=== PATIENT | female | born 1940 | race African-American/Black ===

== ENCOUNTER 2017-07-26 11:38 | Inpatient (IN) | payer BC ==
[2017-07-26] MEDS: IV NORMAL SALINE 1000ML BAG 1,000 ML IV (11:59)
[2017-07-26 12:05] LABS: BASO % 1 % (0-3); EOS % 0 % (0-3); HEMATOCRIT 24.4 % (36.0-47.0); HEMOGLOBIN 8.6 g/dL (12.0-15.5); LYMPH # 1.2 x10^3/uL (1.0-4.8); LYMPH % 35 % (24-48); MEAN CORPUSCULAR HEMOGLOBIN 33 pg (25-35); MEAN CORPUSCULAR HGB CONC 35 g/dL (31-37); MEAN CORPUSCULAR VOLUME 94 fL (79-100); MONO # 1.6 x10^3/uL (0.0-1.1); MONO % 44 % (0-9); NEUT # 0.7 x10^3uL (1.8-7.7); NEUT % 20 % (31-73); PLATELET COUNT 153 x10^3/uL (140-400); RED BLOOD COUNT 2.61 x10^6/uL (3.50-5.40); RED CELL DISTRIBUTION WIDTH 17.7 % (11.5-14.5); WHITE BLOOD COUNT 3.5 x10^3/uL (4.0-11.0)
[2017-07-26 12:13] LABS: ADD MAN DIFF? YES
[2017-07-26 12:15] LABS: ANION GAP 13 (6-14); BLOOD UREA NITROGEN 16 mg/dL (7-20); BUN/CREATININE RATIO 13 (6-20); CALCIUM 8.8 mg/dL (8.5-10.1); CARBON DIOXIDE 25 mmol/L (21-32); CHLORIDE 102 mmol/L (98-107); CREATININE 1.2 mg/dL (0.6-1.0); GFR 52.6; GLUCOSE 143 mg/dL (70-99); POTASSIUM 3.4 mmol/L (3.5-5.1); SODIUM 140 mmol/L (136-145)
[2017-07-26 12:18] LABS: ALBUMIN 3.2 g/dL (3.4-5.0); ALBUMIN/GLOBULIN RATIO 0.6 (1.0-1.7); ALK PHOS 83 U/L (46-116); ALT (SGPT) 20 U/L (14-59); AST (SGOT) 30 U/L (15-37); TOTAL BILIRUBIN 0.6 mg/dL (0.2-1.0)
[2017-07-26 12:20] LABS: LACTIC ACID 1.7 mmol/L (0.4-2.0)
[2017-07-26 12:49] LABS: INFLUENZA A PATIENT NEGATIVE (NEGATIVE); INFLUENZA B PATIENT NEGATIVE (NEGATIVE); OBC FLU VALID
[2017-07-26 12:56] LABS: BILIRUBIN,URINE SMALL (NEG); CLARITY,URINE CLOUDY; COLOR,URINE AMBER; GLUCOSE,URINE NEGATIVE (NEG); NITRITE,URINE NEGATIVE (NEG); PROTEIN,URINE 30 mg/dL (NEG-TRACE)
[2017-07-26 13:03] LABS: BACTERIA,URINE MANY /HPF (0-FEW); RBC,URINE 0 /HPF (0-2); SQUAMOUS EPITHELIAL CELL,UR MANY /LPF; WBC,URINE >40 /HPF (0-4)
[2017-07-26 13:06] LABS: NT-PRO BNP 1990 pg/mL (0-449)
[2017-07-26] MEDS ORDERED: PIP/TAZO PER PHARMACY MC (13:15)
[2017-07-26] MEDS: IOHEXOL 300 MG/ML 100ML VIAL. IV (13:30)
[2017-07-26] MEDS ORDERED: CONTRAST GIVEN MC (13:45)
[2017-07-26] MEDS: PIPERACILLIN/TAZOBACTAM 3.375 GM in IV NORMAL SALINE 50ML 50 ML IV ×2 (13:56→18:01)
[2017-07-26 14:14] LABS: % BANDS 6 % (0-9); % BASOS 1 % (0-3); % LYMPHS 30 % (24-48); % METAS 1 % (0-0); % MONOS 46 % (0-10); % MYELOS 1 % (0-0); % SEGS 10 % (35-66); PLT ESTIMATE ADEQUATE (ADEQUATE)
[2017-07-26 14:17] LABS: ANISOCYTOSIS SLIGHT; POIKILOCYTOSIS SLIGHT
[2017-07-26 14:19] LABS: OVALOCYTES FEW
[2017-07-26 14:29] LABS: % BLASTS 5 % (0-0)
[2017-07-26] MEDS ORDERED: ONDANSETRON PF 4 MG/2 ML VIAL. IV (14:30)
[2017-07-26] MEDS: VANCOMYCIN 2 GM in IV 1/2 NORMAL SALINE 500 ML IV (14:37)
[2017-07-26] MEDS: LEVOTHYROXINE 75 MCG TABLET PO (17:30)
[2017-07-26] MEDS: VANCOMYCIN PER PHARMACY MC (18:18)
[2017-07-26] MEDS: amLODIPine BESYLATE 5 MG TABLET PO ×2 (20:00→21:13)
[2017-07-26 20:24] LABS: RETIC COUNT 0.5 % (0.5-2.5)
[2017-07-26 20:28] LABS: % SAT IRON 40 % (15-34); IRON,SERUM 50 ug/dL (50-170)
[2017-07-26 20:40] LABS: VITAMIN-B12 217 pg/mL (247-911)
[2017-07-26 20:40] LABS: FOLATE 10.62 ng/ml (3.2-20.0)
[2017-07-26 20:41] LABS: FERRITIN 869 ng/mL (8-252)
[2017-07-26 20:48] LABS: FECAL OB PT NEGATIVE (NEG); NEG OBC FOB NEG; POS OBC FOB POS
[2017-07-26] MEDS: LACTOBACILLUS RHAMNOSUS GG 1 CAPSULE. PO (21:12)
[2017-07-26] MEDS: ATORVASTATIN CALCIUM 10 MG TABLET. PO (21:13)
[2017-07-27] MEDS: PIPERACILLIN/TAZOBACTAM 3.375 GM in IV NORMAL SALINE 50ML 50 ML IV ×2 (00:44→05:36)
[2017-07-27 04:49] LABS: ANION GAP 14 (6-14); BLOOD UREA NITROGEN 13 mg/dL (7-20); CALCIUM 8.8 mg/dL (8.5-10.1); CARBON DIOXIDE 23 mmol/L (21-32); CHLORIDE 104 mmol/L (98-107); CREATININE 1.3 mg/dL (0.6-1.0); GFR 47.9; GLUCOSE 121 mg/dL (70-99); POTASSIUM 3.2 mmol/L (3.5-5.1); SODIUM 141 mmol/L (136-145)
[2017-07-27] MEDS: LACTOBACILLUS RHAMNOSUS GG 1 CAPSULE. PO ×2 (08:32→21:54)
[2017-07-27] MEDS: AZITHROMYCIN 250 MG TABLET. PO (09:41)
[2017-07-27] MEDS: CYANOCOBALAMIN (VITAMIN B-12) 1,000 MCG/ML VIAL IM (09:41)
[2017-07-27] MEDS: POTASSIUM CHLORIDE 20 MEQ TABLET.ER. PO (09:41)
[2017-07-27] MEDS: LEVOTHYROXINE 75 MCG TABLET PO (09:41)
[2017-07-27] MEDS: cefTRIAXone IV Push 1 GM VIAL. IVP (09:42)
[2017-07-27] MEDS: ACETAMINOPHEN 325 MG TABLET. PO (10:52)
[2017-07-27 12:23] LABS: HIV ANTIBODY Non Reactive (Non Reactive)
[2017-07-27 14:19] LABS: MAGNESIUM 1.8 mg/dL (1.8-2.4)
[2017-07-27] MEDS ORDERED: VANCOMYCIN 1.25 GM in IV DEXTROSE 5 %-0.2 % NACL 250 ML IV (14:30)
[2017-07-27] MEDS: ATORVASTATIN CALCIUM 10 MG TABLET. PO (21:54)
[2017-07-27] MEDS: amLODIPine BESYLATE 5 MG TABLET PO (21:55)
[2017-07-28] MEDS: ACETAMINOPHEN 500 MG TABLET PO ×3 (04:08→23:51)
[2017-07-28 04:37] LABS: MAGNESIUM 1.8 mg/dL (1.8-2.4)
[2017-07-28 04:42] LABS: ANION GAP 11 (6-14); BLOOD UREA NITROGEN 18 mg/dL (7-20); CALCIUM 8.5 mg/dL (8.5-10.1); CARBON DIOXIDE 24 mmol/L (21-32); CHLORIDE 106 mmol/L (98-107); CREATININE 1.2 mg/dL (0.6-1.0); GFR 52.6; GLUCOSE 129 mg/dL (70-99); POTASSIUM 3.2 mmol/L (3.5-5.1); SODIUM 141 mmol/L (136-145)
[2017-07-28] MEDS: POTASSIUM CHLORIDE 20 MEQ TABLET.ER. PO ×3 (08:00→16:00)
[2017-07-28] MEDS: cefTRIAXone IV Push 1 GM VIAL. IVP (08:59)
[2017-07-28] MEDS ORDERED: POTASSIUM CHLORIDE 20 MEQ TABLET.ER. PO (09:00)
[2017-07-28] MEDS: CYANOCOBALAMIN (VITAMIN B-12) 1,000 MCG/ML VIAL IM (09:04)
[2017-07-28] MEDS: AZITHROMYCIN 250 MG TABLET. PO (09:05)
[2017-07-28] MEDS: LEVOTHYROXINE 75 MCG TABLET PO (09:05)
[2017-07-28] MEDS: LACTOBACILLUS RHAMNOSUS GG 1 CAPSULE. PO ×2 (09:05→20:56)
[2017-07-28 17:16] LABS: ALBUM 2.7 g/dL (2.9-4.4); ALPHA 1 0.3 g/dL (0.0-0.4); ALPHA 2 0.9 g/dL (0.4-1.0); GAMMA 1.6 g/dL (0.4-1.8); M-SPIKE Not Observed g/dL (Not Observed); PROTEIN TOTAL 6.6 g/dL (6.0-8.5); SPEP AG RATIO 0.7 (0.7-1.7)
[2017-07-28] MEDS: amLODIPine BESYLATE 5 MG TABLET PO (20:56)
[2017-07-28] MEDS: ATORVASTATIN CALCIUM 10 MG TABLET. PO (20:57)
[2017-07-29 04:57] LABS: HEMATOCRIT 21.1 % (36.0-47.0); HEMOGLOBIN 7.4 g/dL (12.0-15.5); MEAN CORPUSCULAR HEMOGLOBIN 33 pg (25-35); MEAN CORPUSCULAR HGB CONC 35 g/dL (31-37); MEAN CORPUSCULAR VOLUME 94 fL (79-100); PLATELET COUNT 135 x10^3/uL (140-400); RED BLOOD COUNT 2.26 x10^6/uL (3.50-5.40); RED CELL DISTRIBUTION WIDTH 17.8 % (11.5-14.5); WHITE BLOOD COUNT 6.8 x10^3/uL (4.0-11.0)
[2017-07-29 05:24] LABS: ANION GAP 7 (6-14); BLOOD UREA NITROGEN 12 mg/dL (7-20); CALCIUM 8.6 mg/dL (8.5-10.1); CARBON DIOXIDE 25 mmol/L (21-32); CHLORIDE 108 mmol/L (98-107); GFR 64.9; GLUCOSE 114 mg/dL (70-99); POTASSIUM 3.9 mmol/L (3.5-5.1); SODIUM 140 mmol/L (136-145)
[2017-07-29] MEDS: AZITHROMYCIN 250 MG TABLET. PO (08:07)
[2017-07-29] MEDS: CYANOCOBALAMIN (VITAMIN B-12) 1,000 MCG/ML VIAL IM (08:08)
[2017-07-29] MEDS: LACTOBACILLUS RHAMNOSUS GG 1 CAPSULE. PO ×2 (08:08→21:06)
[2017-07-29] MEDS: LEVOTHYROXINE 75 MCG TABLET PO (08:08)
[2017-07-29] MEDS: POTASSIUM CHLORIDE 20 MEQ TABLET.ER. PO ×2 (08:08→16:19)
[2017-07-29] MEDS: cefTRIAXone IV Push 1 GM VIAL. IVP (08:12)
[2017-07-29] MEDS: ACETAMINOPHEN 650 MG SUPP.RECT. PR (11:16)
[2017-07-29] MEDS: ACETAMINOPHEN 500 MG TABLET PO (16:25)
[2017-07-29] MEDS: ATORVASTATIN CALCIUM 10 MG TABLET. PO (21:05)
[2017-07-29] MEDS: amLODIPine BESYLATE 5 MG TABLET PO (21:06)
[2017-07-29 21:13] LABS: C DIFF BY PCR Negative (Negative)
[2017-07-30 04:28] LABS: ADD MAN DIFF? NO
[2017-07-30 04:40] LABS: BASO % 0 % (0-3); EOS # 0.1 x10^3/uL (0.0-0.7); EOS % 1 % (0-3); HEMATOCRIT 21.2 % (36.0-47.0); HEMOGLOBIN 7.4 g/dL (12.0-15.5); LYMPH # 1.6 x10^3/uL (1.0-4.8); LYMPH % 21 % (24-48); MEAN CORPUSCULAR HEMOGLOBIN 33 pg (25-35); MEAN CORPUSCULAR HGB CONC 35 g/dL (31-37); MEAN CORPUSCULAR VOLUME 94 fL (79-100); MONO # 4.9 x10^3/uL (0.0-1.1); MONO % 65 % (0-9); NEUT % 13 % (31-73); PLATELET COUNT 144 x10^3/uL (140-400); RED BLOOD COUNT 2.26 x10^6/uL (3.50-5.40); RED CELL DISTRIBUTION WIDTH 17.6 % (11.5-14.5); WHITE BLOOD COUNT 7.6 x10^3/uL (4.0-11.0)
[2017-07-30 05:31] LABS: ALBUMIN 2.4 g/dL (3.4-5.0); ALBUMIN/GLOBULIN RATIO 0.4 (1.0-1.7); ALK PHOS 94 U/L (46-116); ALT (SGPT) 41 U/L (14-59); ANION GAP 7 (6-14); AST (SGOT) 43 U/L (15-37); BLOOD UREA NITROGEN 9 mg/dL (7-20); BUN/CREATININE RATIO 10 (6-20); CALCIUM 8.5 mg/dL (8.5-10.1); CARBON DIOXIDE 26 mmol/L (21-32); CHLORIDE 107 mmol/L (98-107); CREATININE 0.9 mg/dL (0.6-1.0); GFR 73.3; GLUCOSE 126 mg/dL (70-99); POTASSIUM 4.1 mmol/L (3.5-5.1); SODIUM 140 mmol/L (136-145); TOTAL BILIRUBIN 0.3 mg/dL (0.2-1.0); TOTAL PROTEIN 7.8 g/dL (6.4-8.2)
[2017-07-30] MEDS: cefTRIAXone IV Push 1 GM VIAL. IVP ×2 (09:00→11:33)
[2017-07-30] MEDS: LACTOBACILLUS RHAMNOSUS GG 1 CAPSULE. PO ×2 (11:31→21:10)
[2017-07-30] MEDS: POTASSIUM CHLORIDE 20 MEQ TABLET.ER. PO ×2 (11:32→17:37)
[2017-07-30] MEDS: CYANOCOBALAMIN (VITAMIN B-12) 1,000 MCG/ML VIAL IM (11:32)
[2017-07-30] MEDS: AZITHROMYCIN 250 MG TABLET. PO (11:33)
[2017-07-30] MEDS: LEVOTHYROXINE 75 MCG TABLET PO (11:37)
[2017-07-30] MEDS: LOPERAMIDE 2 MG CAPSULE PO (17:37)
[2017-07-30] MEDS: amLODIPine BESYLATE 5 MG TABLET PO (21:11)
[2017-07-30] MEDS: ATORVASTATIN CALCIUM 10 MG TABLET. PO (21:11)
[2017-07-31 03:39] LABS: ADD MAN DIFF? NO
[2017-07-31 03:48] LABS: BASO % 0 % (0-3); EOS % 0 % (0-3); HEMATOCRIT 21.3 % (36.0-47.0); HEMOGLOBIN 7.4 g/dL (12.0-15.5); LYMPH # 2.5 x10^3/uL (1.0-4.8); LYMPH % 25 % (24-48); MEAN CORPUSCULAR HEMOGLOBIN 33 pg (25-35); MEAN CORPUSCULAR HGB CONC 35 g/dL (31-37); MEAN CORPUSCULAR VOLUME 94 fL (79-100); MONO # 6.8 x10^3/uL (0.0-1.1); MONO % 68 % (0-9); NEUT # 0.8 x10^3uL (1.8-7.7); NEUT % 8 % (31-73); PLATELET COUNT 142 x10^3/uL (140-400); RED BLOOD COUNT 2.26 x10^6/uL (3.50-5.40); RED CELL DISTRIBUTION WIDTH 17.7 % (11.5-14.5); WHITE BLOOD COUNT 10.1 x10^3/uL (4.0-11.0)
[2017-07-31 04:02] LABS: PROTHROMBIN TIME PATIENT 12.2 SEC (11.7-14.0)
[2017-07-31] MEDS ORDERED: PROCHLORPERAZINE 10 MG/2 ML VIAL. IV (07:00)
[2017-07-31] MEDS ORDERED: fentaNYL PF VIAL 100 MCG/2 ML VIAL IV ×2 (07:00)
[2017-07-31] MEDS ORDERED: ONDANSETRON PF 4 MG/2 ML VIAL. IV (07:00)
[2017-07-31] MEDS ORDERED: MORPHINE SULFATE 4 MG/ML DISP.SYRIN. IV (07:00)
[2017-07-31] MEDS ORDERED: LIDOCAINE 1% PF 2 ML VIAL. ID (07:00)
[2017-07-31] MEDS: POTASSIUM CHLORIDE 20 MEQ TABLET.ER. PO ×2 (08:00→16:30)
[2017-07-31] MEDS ORDERED: LIDOCAINE WITH 8.4% SOD BICARB 3 ML DISP.SYRIN. (09:10)
[2017-07-31] MEDS: LIDOCAINE WITH 8.4% SOD BICARB 3 ML DISP.SYRIN. IJ (09:52)
[2017-07-31] MEDS: fentaNYL PF VIAL 100 MCG/2 ML VIAL IV (09:54)
[2017-07-31] MEDS: MIDAZOLAM HCL/PF 2 MG/2 ML VIAL. IV (09:54)
[2017-07-31] MEDS ORDERED: MIDAZOLAM HCL/PF 2 MG/2 ML VIAL. (10:02)
[2017-07-31] MEDS ORDERED: fentaNYL PF VIAL 100 MCG/2 ML VIAL (10:03)
[2017-07-31] MEDS ORDERED: PROPOFOL 20 ML IV (10:04)
[2017-07-31] MEDS ORDERED: LIDOCAINE 2% PF Vial for OR 5 ML VIAL. (10:04)
[2017-07-31] MEDS: IV RINGERS,LACTATED 1000ML 1,000 ML IV (10:06)
[2017-07-31] MEDS: LIDOCAINE 2% TOPICAL JELLY 5GM TUBE. TP (10:06)
[2017-07-31] MEDS: LIDOCAINE 2% VISCOUS 15 ML SOLUTION. SWSW (10:23)
[2017-07-31] MEDS: BENZOCAINE ONE 20% MUCOSAL SPRAY. MM (10:23)
[2017-07-31] MEDS: LEVOTHYROXINE 75 MCG TABLET PO (14:19)
[2017-07-31] MEDS: cefTRIAXone IV Push 1 GM VIAL. IVP (14:19)
[2017-07-31] MEDS: LACTOBACILLUS RHAMNOSUS GG 1 CAPSULE. PO ×2 (14:19→21:00)
[2017-07-31] MEDS: AZITHROMYCIN 250 MG TABLET. PO (14:19)
[2017-07-31] MEDS: ATORVASTATIN CALCIUM 10 MG TABLET. PO (21:00)
[2017-07-31] MEDS: amLODIPine BESYLATE 5 MG TABLET PO (21:00)
[2017-08-01] MEDS: AZITHROMYCIN 250 MG TABLET. PO (09:55)
[2017-08-01] MEDS: LEVOTHYROXINE 75 MCG TABLET PO (09:56)
[2017-08-01] MEDS: LACTOBACILLUS RHAMNOSUS GG 1 CAPSULE. PO ×2 (09:56→20:48)
[2017-08-01] MEDS: POTASSIUM CHLORIDE 20 MEQ TABLET.ER. PO ×2 (09:56→18:57)
[2017-08-01] MEDS: cefTRIAXone IV Push 1 GM VIAL. IVP (09:57)
[2017-08-01] MEDS: amLODIPine BESYLATE 5 MG TABLET PO (20:49)
[2017-08-01] MEDS: ATORVASTATIN CALCIUM 10 MG TABLET. PO (20:49)
[2017-08-02] MEDS: POTASSIUM CHLORIDE 20 MEQ TABLET.ER. PO (11:27)
[2017-08-02] MEDS: cefTRIAXone IV Push 1 GM VIAL. IVP (11:27)
[2017-08-02] MEDS: LACTOBACILLUS RHAMNOSUS GG 1 CAPSULE. PO (11:27)
[2017-08-02] MEDS: LEVOTHYROXINE 75 MCG TABLET PO (11:27)
== END 2017-08-02 14:30 | disposition home or self-care (01) | DRG 871 ==
LOC: ER 11:38 → 5 SOUTH 13:49
PROC: B24BZZ4 Ultrasonography of Heart with Aorta, Transesophageal (ICD-10-PCS; 2017-07-31 10:30)
DX: A41.9 Sepsis, unspecified organism (principal); J18.9 Pneumonia, unspecified organism; I50.33 Acute on chronic diastolic (congestive) heart failure; D61.818 Other pancytopenia; C95.90 Leukemia, unspecified not having achieved remission; I11.0 Hypertensive heart disease with heart failure; I34.0 Nonrheumatic mitral (valve) insufficiency; N39.0 Urinary tract infection, site not specified; E53.8 Deficiency of other specified B group vitamins; E78.00 Pure hypercholesterolemia, unspecified; E78.5 Hyperlipidemia, unspecified; E87.6 Hypokalemia; E89.0 Postprocedural hypothyroidism; H54.8 Legal blindness, as defined in USA; H26.9 Unspecified cataract; Z98.51 Tubal ligation status; Z98.49 Cataract extraction status, unspecified eye; R19.7 Diarrhea, unspecified
CPT/HCPCS: 36415; 38222; 71045; 71260; 77012; 80048; 80053; 81001; 82274; 82607; 82728; 82746; 83540; 83550; 83605; 83735; 83880; 84165; 85007; 85025; 85027; 85045; 85610; 86703; 87040; 87045; 87086; 87324; 87804; 87804-59; 88184; 88185; 88237; 93005; 93306; 93312; 93320; 93325; 96361; 96365; 96368; 99152; 99291; 99291-25; J0696; J2250; J2543; J2704; J3010; J3370; J3420; J7030; J7120; Q0144